=== PATIENT | female | born 1970 | race Caucasian/White ===

== ENCOUNTER 2019-11-18 09:39 | Inpatient (IN) | payer OTHER ==
[~2019-11-18] VITALS: Ht 152.4 cm; Wt 96.6 kg
[2019-11-18 10:14] VITALS: BP 165/93
[2019-11-18] MEDS ORDERED: LIPITOR 10 MG10 M1 PO (10:20)
[2019-11-18 11:07] LABS: ABSOLUTE MONOCYTES 0.5 thou/uL (0.0-1.2); ABSOLUTE NEUTROPHILS 5.2 thou/uL (1.6-8.1); BASOPHILS 0.3 %; EOSINOPHILS 0.1 %; HEMATOCRIT 43.6 % (37.0-47.0); HEMOGLOBIN 15.3 gm/dL (12.0-15.0); LYMPHOCYTES 14.7 %; MCH 32.8 pg (26.0-34.0); MCV 93.7 fL (80.0-100.0); MPV 8.3 fl. (7.2-11.1); NUCLEATED RBCS 0 /100WBC; PLATELET COUNT* 292 thou/uL (150-400); POLYS 77.9 %; RBC 4.65 mil/uL (4.20-5.00); RDW-CV 13.9 % (10.5-14.5); WBC 6.6 thou/uL (4.0-11.0)
[2019-11-18 11:12] LABS: CALCIUM 8.1 mg/dL (8.5-10.1); CREATININE 0.8 mg/dL (0.6-1.3); POTASSIUM 3.3 mmol/L (3.5-5.1)
[2019-11-18 11:18] LABS: APTT 27.8 Seconds (25.0-31.3); PROTIME 10.3 Seconds (9.20-11.50)
[2019-11-18 11:23] LABS: ALBUMIN 3.2 g/dL (3.4-5.0); TOTAL BILIRUBIN 0.4 mg/dL (<0.1-1.0); TOTAL PROTEIN 7.6 g/dL (6.4-8.2)
[2019-11-18 12:38] LABS: BE 0.6 mmol/L (-2 to +3); PCO2 37.3 mmHg (35.0-45.0); pH 7.435 (7.340-7.450)
[2019-11-18 12:39] LABS: PO2 47.7 mmHg (75.0-100.0)
--- NOTE | 2019-11-18 15:03 | EKG ---
[place] [address] ELECTROCARDIOGRAM REPORT Name: CHIN JULES Room: [place] [address] ADM IN [facility]#: [id number] Admission: 11/18/19 Attend Phys: Juan Alberto Mandel, Discharge: Date of : 72 Date of Service: 11/18/19 0956 Report #: [id number] THIS REPORT FOR: //name// [facility] ED Test Date: 2019-11-18 Test Time: 09:56:25 Pat Name: CHIN JULES Department: Room: [facility] Gender: F Piping Manager: : 1970 Requested By: Bishnu Palomares Order Number: [id number] MD: Tico Robison Measurements Intervals Carmen Rate: 114 P: 54 UT: 130 QRS: -8 QRSD: 83 T: 1 QT: 322 QTc: 444 Interpretive Statements Sinus tachycardia Consider anterior infarct No previous ECG available for comparison Electronically Signed On 11-18-2019 15:02:54 CDT by Tico Robison [email or web address] <ELECTRONICALLY SIGNED> By: Tico Robison MD, [facility] 11/18/19 1502 [id number] Tico Robison MD, [facility] /EPI
[2019-11-18 16:19] VITALS: BP 145/72
[2019-11-18 20:00] VITALS: BP 135/75
[2019-11-19 04:55] LABS: HEMATOCRIT 42.2 % (37.0-47.0); HEMOGLOBIN 14.7 gm/dL (12.0-15.0); MCH 32.7 pg (26.0-34.0); MCHC 34.9 g/dL (28.0-37.0); MCV 93.9 fL (80.0-100.0); MPV 7.6 fl. (7.2-11.1); RBC 4.5 mil/uL (4.20-5.00); RDW-CV 13.8 % (10.5-14.5); WBC 5.7 thou/uL (4.0-11.0)
[2019-11-19 05:20] LABS: CALCIUM 8.1 mg/dL (8.5-10.1); CREATININE 0.7 mg/dL (0.6-1.3); MAGNESIUM 2.3 mg/dL (1.8-2.4); POTASSIUM 3.9 mmol/L (3.5-5.1)
[2019-11-19 08:47] VITALS: BP 138/81
[2019-11-19 11:10] LABS: BE 0.6 mmol/L (-2 to +3); PCO2 37.6 mmHg (35.0-45.0); PO2 64.3 mmHg (75.0-100.0); pH 7.434 (7.340-7.450)
--- NOTE | 2019-11-19 11:34 | CON ---
[address] [address] CONSULTATION Name: CHIN JULES Room: [address] ADM IN .R.#: [id number] Admission: 11/18/19 Attend Phys: Juan Alberto Mandel MD Discharge: Date of : 72 Report #: [id number] THIS REPORT FOR: //name// cc: CHANG Waters family physician/PCP CHANG - Evelin family physician/PCP ~ THIS REPORT FOR: //name// CC: [facility] physician/PCP Juan Alberto Mandel DATE OF SERVICE: 11/18/2019 INFECTIOUS DISEASE CONSULTATION ATTENDING PHYSICIAN: Juan Alberto Mandel MD REASON FOR EVALUATION: COVID-19 infection. HISTORY OF PRESENT ILLNESS: Chart reviewed, patient examined. This is a 49-year-old woman, with history of hyperlipidemia, obesity, who presented to the Emergency Room with complaints of progressive cough, has been dry primarily for the last week or so; however, developed somewhat productive cough over the course of recent 1-2 days. She has been very fatigued, sleeping. She had not noticed significant dyspnea; however, on evaluation, was found to have hypoxemia with saturations in the mid to upper 80s. She was placed on supplemental oxygen, now at 3 liters. She is quite lucid. Denies recent fevers. She noted she traveled from [place] and heading to [place] to relocate. She was noted early on, had a coronavirus testing, which was negative at that point and they assumed it was bronchitis. She does admit to poor p.o. intake with anorexia. Denies any nausea, she has had some recent loose stools, diarrhea. Evaluation showed lymphocyte count of 1000. Lactic acid of 0.9. ABGs: pH 7.435, pCO2 of 37.3, pO2 of 47.7 that was on 4 liters. Chest x-ray showed multifocal pneumonitis. She was placed on combination therapy with ceftriaxone and azithromycin and corticosteroids with methylprednisolone. ALLERGIES: None known. MEDICATIONS: Include above-noted antibiotics, steroids, atorvastatin, guaifenesin, albuterol. PAST MEDICAL HISTORY: As described above, hyperlipidemia, previous hysterectomy. SOCIAL HISTORY: Nonsmoker, no ethanol, no illicit drug use. FAMILY HISTORY: [place] [address] CONSULTATION Name: CHIN JULES Room: [address]#: [id number] Admission: 11/18/19 Attend Phys: Juan Alberto Mandel MD Discharge: Date of : 72 Report #: [id number] REVIEW OF SYSTEMS: As above. PHYSICAL EXAMINATION: GENERAL: Pleasant, alert, cooperative. She is in mild respiratory distress. She does have nasal cannula oxygen in place, appears to be reasonably well nourished. She is obese. VITAL SIGNS: Temperature 97.1, pulse 111, respirations 18, blood pressure 145/72. SKIN: Warm, dry, no rashes. HEENT: Normocephalic. Extraocular muscles intact. NECK: Supple. LUNGS: Few scattered coarse breath sounds. HEART: Regular. Borderline tachycardic. I do not appreciate a murmur. ABDOMEN: Soft, nontender, nondistended. EXTREMITIES: No cyanosis. GENITOURINARY AND RECTAL: Deferred. LABORATORY DATA: ABGs described above. CRP elevated at 48.2. Ferritin is 516, LDH less than 6. Lactic acid of 0.9. Troponin less than 0.06. CBC: White count of 6.6, H and H of 15.3 and 43.6, platelets of 292. Electrolytes: Sodium 134, potassium 3.3, chloride 97, bicarbonate is 27, anion gap of 10, BUN and creatinine 7 and 0.8. LFTs normal except for borderline elevated AST of 43, albumin of 3.2, total protein 7.6. ASSESSMENT AND PLAN: COVID-19 infection, complicated by pneumonitis and respiratory failure. She states she has improved likely with hydration and perhaps the corticosteroids. At this point, we would be concerned about a secondary bacterial pneumonitis given the change in her status after an extended period. We will continue antibacterials at this point, I think we will hold off on the discussion about remdesivir, although that certainly may be an option going forward. Inflammatory markers are markedly elevated, could avoid the IL-6 inhibitor at this point I think as well, support with oxygen. We will monitor expectantly. <ELECTRONICALLY SIGNED> By: Carlos Glass MD 11/19/19 1134 [id number] 2030Jobeto Glass MD /nt
[2019-11-19 12:00] VITALS: BP 136/73
--- NOTE | 2019-11-19 14:15 | NUR ---
Nutrition: Pt admitted with COVID. Did not enter room today. Regular diet ordered. BG 166, albumin 3.2. Wt: 213#. Assessed for hgih BMI. H/o HLD, OBE. Pt had a cough since November 10. Continuous O2. CXR in morning. No nutrition interventions needed at this time. RD available via consult. Mild nutrition risk.
[2019-11-19 16:00] VITALS: BP 131/80
--- NOTE | 2019-11-19 16:52 | NUR ---
ASSUMED CARE OF PT AROUND 0730 THIS AM. REFER TO ASSESSMENT. PT TITRATED TO 10L/ HIGH FLOW NC THIS SHIFT. SATS REMAINING AROUND 90-91%. PT ENCOURAGED TO USE IS FREQUENTLY AND PT COMPLIANT. PT ENCOURAGED TO LIE IN PRONE POSITION TOLERATED. PT STATES SHE TOLERATES IT WELL AND SATS INCREASE TO 97% ON 1OL WHILE IN PRONE POSITION. PT STATES UNABLE TO GIVE SPUTUM CULTURE D/T NO SPUTUM AT THIS TIME. AWAITING URINE SAMPLE AT THIS TIME. NO OTHER CONCERNS. CLWR. WCTM.
[2019-11-19 20:00] VITALS: BP 129/73
[2019-11-19 21:06] LABS: HEPATITIS B SURFACE AG Negative (Negative); HIV-1/HIV-2 ANTIBODY Non Reactive (Non Reactive)
[2019-11-20 00:40] VITALS: BP 135/83
[2019-11-20 03:18] VITALS: BP 114/57
--- NOTE | 2019-11-20 06:29 | NUR ---
ASSUMED PT CARE AT 1920. NURSING ASSESSMENT COMPLETED, SR/ST ON MANAGER ACCOUNT MANAGEMENT. PT REQUIRING 11L HF NC THIS SHIFT. O2 SAT IMPROVES WHEN PATIENT IN PRONE POSITION. CONTINUOUS PULSE OX IN PLACE. UNABLE TO TITRATE O2 DOWN THIS SHIFT. HOURLY ROUNDING COMPLETED. CALL LIGHT WITHIN REACH.
[2019-11-20 08:00] VITALS: BP 132/66
--- NOTE | 2019-11-20 08:10 | NUR ---
ASSUMED CARE OF PATIENT THIS MORNING FROM NIGHT NURSE. PT IS DOING WELL AND IS UP AD JAIME IN HER ROOM, SHE IS STEADY ON HER FEET. SHE WAS EDUCATED ON POC AND DISEASE PROCESS. NO CO OF PAIN AND HER CO OF ANXIETY IS WELL CONTROLLED WITH PO ANXIETY MEDICATIONS. WILL CONTINUE TO MONOTOR.
[2019-11-20 09:01] LABS: HEMATOCRIT 43.3 % (37.0-47.0); HEMOGLOBIN 14.5 gm/dL (12.0-15.0); MCH 31.7 pg (26.0-34.0); MCHC 33.6 g/dL (28.0-37.0); MCV 94.5 fL (80.0-100.0); MPV 7.5 fl. (7.2-11.1); RBC 4.58 mil/uL (4.20-5.00); RDW-CV 14.1 % (10.5-14.5); WBC 19.3 thou/uL (4.0-11.0)
[2019-11-20 09:15] LABS: ALBUMIN 3.1 g/dL (3.4-5.0); CALCIUM 8.2 mg/dL (8.5-10.1); CREATININE 0.8 mg/dL (0.6-1.3); MAGNESIUM 2.2 mg/dL (1.8-2.4); POTASSIUM 3.4 mmol/L (3.5-5.1); TOTAL BILIRUBIN 0.3 mg/dL (<0.1-1.0); TOTAL PROTEIN 7.3 g/dL (6.4-8.2)
--- NOTE | 2019-11-20 11:00 | NUR ---
PT.IN ISOLATION FOR POSITIVE COVID. CM UNABLE TO ENTER ROOM. PER TEAM, SHE IS ON HIGH LITER FLOW OF O2. BUT A&0 X 4 AND UP IN ROOM. SHE WAS TRAVELING FROM [place] BUT RESIDES IN [place]. HAS A FRIEND, MENA THAT LIVES IN [place]. PT.IS UNINSURED. IF O2 NEEDED AT DISCHARGE, WILL DISCUSS WITH PT.ABOUT RENTING O2 EITHER THROUGH [facility] OR [facility]. CM WILL FOLLOW.
[2019-11-20 12:00] VITALS: BP 130/56
[2019-11-20 16:00] VITALS: BP 124/60
[2019-11-20 16:11] LABS: BE 0.8 mmol/L (-2 to +3); PCO2 38.8 mmHg (35.0-45.0); PO2 66.3 mmHg (75.0-100.0); pH 7.427 (7.340-7.450)
[2019-11-20 20:00] VITALS: BP 121/66
--- NOTE | 2019-11-21 00:49 | NUR ---
ALERT ORIENTED. UP AD JAIME IN ROOM. TELEMETRY SHOWS SR. ON CONTINUOUS O2 SAT MONITORING. O2 SAT 90-97% ON 6 LITERS NC. BREATH SOUNDS CLEAR. TYLENOL GIVEN FOR [facility]. PT SLEEPING. REFUSED MN VS. WILL CONTINUE TO MONITOR.
[2019-11-21 04:00] VITALS: BP 136/53
[2019-11-21 11:27] VITALS: BP 149/85
[2019-11-21 15:30] VITALS: BP 123/69
--- NOTE | 2019-11-21 18:33 | NUR ---
PT IS ALERT AND ORIENTED SOME ANXIETY NOTED AND ATIVAN GIVEN THIS AM PT IS NOW ON 2L NC WHEN SHE WAS ON 6L NC THIS AM SATS AT 95% PHYSICIAN OKAY WITH 88-90 PERCENT SATS ID STATED ABOVE 90. PT DOES NOT SEEM TO BE IN DISTRESS. UP AD JAIME GOOD APPETITE PT STATES "I'M JUST SO TIRED TODAY" C/O CONGESTION AND AFRIN ORDERED BID PRN PT EDUCATED ON NOT TAKING MORE THAN TWICE A DAY PT COMMUNICATES UNDERSTANDING CALL LIGHT IN REACH USES WALL ASSIST THOUGH D/T NOT WORKING WILL CONT TO MONITOR
[2019-11-21 20:00] VITALS: BP 116/66
--- NOTE | 2019-11-22 04:45 | NUR ---
No acute event this shift. O2 sat 90's 2L NC. Pt denies pain. Up ad dru, Pt refused vitals at 0000. Enhanced Iso observed. Cluster care, will continue to monitor.
[2019-11-22 05:37] VITALS: BP 139/75
[2019-11-22 08:00] VITALS: BP 124/71
[2019-11-22 13:09] VITALS: BP 131/77
[2019-11-22 17:25] VITALS: BP 137/76
--- NOTE | 2019-11-22 20:09 | NUR ---
ASSUMED CARE OF PATIENT AROUND 1000 FROM RN KIMBERLI, CHARTING COMPLETED, VS CHARTED, NC@4L, COVID + ENHANCED PRECAUTIONS, PATIENT DOES NOT LIKE TO BE BOTHERED, CARE CLUSTERED, HOURLY ROUNDING PERFORMED, POSSESSIONS AND CALL LIGHT WITHIN REACH
[2019-11-22 20:15] VITALS: BP 127/79
--- NOTE | 2019-11-23 06:57 | NUR ---
PT SLEPT MOST OF SHIFT. ASSESSMENT DOCUMENTED. MEDS GIVEN PER E-JUL. IV PATENT. MEDS GIVEN PER E-JUL. PT REQUESTING STRONGER MEDICATION FOR HEADACHE, NOTIFIED, ORDERS RECIEVED. ISOLATION MAINTAINED. WILL CONTINUE WITH PLAN OF CARE.
[2019-11-23 07:17] LABS: HEMATOCRIT 41.3 % (37.0-47.0); HEMOGLOBIN 14.1 gm/dL (12.0-15.0); MCH 32.2 pg (26.0-34.0); MCHC 34.1 g/dL (28.0-37.0); MCV 94.5 fL (80.0-100.0); MPV 7.3 fl. (7.2-11.1); RBC 4.37 mil/uL (4.20-5.00); RDW-CV 13.6 % (10.5-14.5); WBC 12.1 thou/uL (4.0-11.0)
[2019-11-23 07:37] LABS: ALBUMIN 2.6 g/dL (3.4-5.0); CALCIUM 7.7 mg/dL (8.5-10.1); CREATININE 0.8 mg/dL (0.6-1.3); MAGNESIUM 2.2 mg/dL (1.8-2.4); POTASSIUM 4.3 mmol/L (3.5-5.1); TOTAL BILIRUBIN 0.3 mg/dL (<0.1-1.0); TOTAL PROTEIN 5.9 g/dL (6.4-8.2)
[2019-11-23 09:00] VITALS: BP 126/78
[2019-11-23 12:00] VITALS: BP 163/83
--- NOTE | 2019-11-23 12:49 | NUR ---
ASSUMED CARE OF PATIENT AT 1230. PATIENT IS ALERT AND ORIENTED X 4. SHE DENIES PAIN AT THIS TIME. O2 IS AT 3 LITERS. NO FALLS OR INJURY.
[2019-11-23 16:00] VITALS: BP 126/82
[2019-11-23 20:57] VITALS: BP 140/86
--- NOTE | 2019-11-24 06:47 | NUR ---
PT SLEPT MOST OF SHIFT. ASSESSMENT DOCUMENTED. MEDS GIVEN PER E-JUL. IV PATENT. COUGH MEDS GIVEN PER E-MAR. PT REFUSES 0000 COUGH SYRUP. ISOLATION MAINTAINED. PT SLEPT PRONE POSITIONED. WILL CONTINUE WITH PLAN OF CARE.
[2019-11-24 08:00] VITALS: BP 143/85
[2019-11-24] MEDS ORDERED: PREDNISONE 20 M20 MG PO (09:20)
--- NOTE | 2019-11-24 11:39 | NUR ---
CM SPOKE TO THE PT TO DISCUSS DISCHARGE PLANNING NEEDS, AND HOME O2. PT INFORMS THAT SHE IS CURRENTLY HOMELESS AND HAD TRAVELED HERE TO VISIT WITH A FRIEND. PT ALSO INFORMS THAT SHE DOES NOT CURRENTLY HAVE THE FINANCES TO PAY FOR HOME O2 AND IS UNINSURED. PT INFORMS THAT HER FRIEND HAS ALSO TESTED POSITIVE FOR COVID. PT CURRENTLY TRYING TO MAKE ARRANGEMENTS FOR WHERE SHE WILL GO AT D/C. PT PENDING SAT TESTING TO DETERMINE NEED FOR HOME O2. CM CURRENTLY WORKING ON APPROVAL TO ASSIST WITH COST OF HOME 02, HOWEVER PT MUST HAVE A PLACE TO GO TO BE ABLE TO HAVE DME DELIVERED AND BE ABLE TO USE O2 CONCENTRATOR. CM CALLED TO DISCUSS PENDING MEDICAID FOR COVID-19 POSITIVE PTS WITH SARA FROM [employer]. CM CALLED [employer] AND FAXED PT'S INFO. CM AWATING A RETURN CALL FROM SARA. CM WILL REMAIN AVAILABLE TO ASSIST AND FOLLOW NEEDED. [employer] PHONE: [phone] X:[phone](SARA) FAX: [phone]
--- NOTE | 2019-11-24 15:38 | NUR ---
AWAITING DC PLAN PER CM. PT DOES NOT HAVE A PLACE TO STAY OR A MEANS TO AFFORD HOME O2. CM AWARE
--- NOTE | 2019-11-24 18:39 | NUR ---
PT UP IN ROOM WITH STEADY GAIT. REMAINS IN ENHANCED PRECAUTIONS FOR COVID. DC ORDERS RECEIVED BUT AWAITING PLACE TO GO AND HOME O2, AFEBRILE. TOLERATING PO WELL
[2019-11-24 19:55] VITALS: BP 111/71
--- NOTE | 2019-11-25 04:57 | NUR ---
PATIENT PROGRESSING TOWARDS GOALS AND DISCHARGE: HEADACHE MANAGED WITH MEDICATION PER MAR AND RELAXATION/DARK AND QUIET ENVIRONMENT. PATIENT UP INDEPENDENTLY IN ROOM. REMAINS ON 2L O2 NC. CALL LIGHT WITHIN REACH
--- NOTE | 2019-11-25 08:36 | NUR ---
Nutrition: At follow up, pt has orders to discharge but is awaing DC plan d/t COVID+ status and unable to pay for home O2. Nsg noted pt is tolerating po well. Meds and labs reviewed. Continue POC.
[2019-11-25 08:45] VITALS: BP 138/70
[2019-11-25 14:08] VITALS: BP 138/70
== END 2019-11-25 15:30 | disposition home or self-care (01) | DRG 871 ==
LOC: M.ERS 09:39 → M.TBA-ER 11:48 → M.2W 11:48
PROVIDERS: Family Medicine; ADMIT Internal Medicine; ATTEND Internal Medicine
DX: A41.89 Other specified sepsis (principal); J96.21 Acute and chronic respiratory failure with hypoxia; U07.1 COVID-19; J12.89 Other viral pneumonia; Z68.41 Body mass index [BMI] 40.0-44.9, adult; E78.5 Hyperlipidemia, unspecified; E66.9 Obesity, unspecified; E87.6 Hypokalemia; E66.01 Morbid (severe) obesity due to excess calories; Z90.710 Acquired absence of both cervix and uterus; Z79.899 Other long term (current) drug therapy